=== PATIENT | male | born 1960 | race American Indian/Alaskan Native ===

== ENCOUNTER 2017-05-08 10:52 | Emergency (ER) | payer SELFPAY ==
[2017-05-08 11:15] VITALS: BP 164/93
--- NOTE | 2017-05-08 12:13 | Emergency Department Report ---
Upper Extremity - HPI Chief Complaint: Extremity Injury, Upper Stated Complaint: RIGHT MIDDLE FINGER INJURY Time Seen by Provider: 05/08/17 11:20 Upper Extremity: Right Middle Finger Occurred When: 4 Days Mechanism: Hit with Object, Crush Severity: moderate Symptoms: Yes Deformity, Yes Laceration or Abrasion, No Pain with Movement, No Limited Range of Movement, No Numbness, No Weakness, No Swelling Other History: 57-year-old male past medical history none presents 4 days status post injury to right distal middle finger. 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 Patient states he was treated at [facility]. in [place] and has paperwork for his visit to the emergency department there. Patient experienced a distal right middle fingertip tuft amputation. Patient presents to the ED today requesting referral to orthopedics last hand specialist and for wound check. Denies fever or chills denies pus or purulent drainage from tip of finger and or foul smell. Patient was given prescription for Percocet and is on 10 day course of 500 mg Keflex 3 times a day. Patient was given Ancef and tetanus update at [facility]. Denies worsening pain or injuries to any other body part. States this is a workman's comp related visit. ED Review of Systems ROS: Stated complaint: RIGHT MIDDLE FINGER INJURY Other details as noted in HPI Constitutional: denies: chills, fever Eyes: denies: eye pain, eye discharge, vision change ENT: denies: ear pain, throat pain Respiratory: denies: cough, shortness of breath, wheezing Cardiovascular: denies: chest pain, palpitations Endocrine: no symptoms reported Gastrointestinal: denies: abdominal pain, nausea, diarrhea Genitourinary: denies: urgency, dysuria Musculoskeletal: as per HPI (avulsion/amputation injury to right distal middle finger). denies: back pain, joint swelling, arthralgia Skin: denies: rash, lesions Neurological: denies: headache, weakness, paresthesias Psychiatric: denies: anxiety, depression Hematological/Lymphatic: denies: easy bleeding, easy bruising ED Past Medical Hx - Past Medical History Previous Medical History?: No - Surgical History Past Surgical History?: No - Social History Smoking Status: Never Smoker Substance Use Type: None - Medications Home Medications: Home Medications Medication Instructions Recorded Confirmed Last Taken Type HYDROcodone/APAP 5-325 [[place] 1 each PO Q6HR PRN #8 tablet 05/08/17 Unknown Rx 5/325] Naproxen 500 mg PO BID PRN #30 tablet 05/08/17 Unknown Rx Upper Extremity Exam - Exam General: Vital signs noted. No distress. Alert and acting appropriately. Head and Torso: No HEENT Abnormality, No Neck Tenderness, No Chest/Lungs Abnormality, No Abdominal Tenderness, No Back Tenderness Shoulder Exam: Yes Normal Range of Motion in Shoulder, No Shoulder Tenderness, No Clavicle Tenderness, No Shoulder Deformity, No AC Joint Tenderness Arm Exam: No Arm/Humerus Tenderness, No Arm Deformity Elbow: No Elbow Tenderness, No Normal Range of Motion in Elbow, No Elbow Deformity Forearm: No Forearm Tenderness, No Forearm Deformity, No Pain with Pronation, No Pain with Supination Wrist: Yes Normal ROM in Wrist (wrist flexion and extension intact), No Wrist Tenderness, No Wrist Deformity, No Snuffbox Tenderness (is no snuffbox tenderness on exam), No Pain with Axial Thumb Compression Hand: Yes Digit Tenderness (distal right middle finger tenderness passed distal interphalangeal joint when there is a large visible avulsion), Yes Normal ROM in Digit(s) (range of motion MCPs DIPs PIP is intact on exam right hand), No Hand Tenderness, No Hand Deformity, No Digit(s) Deformity, No Tendon Dysfunction CMS Exam: Yes Broken Skin (large distal right middle finger tip avulsion), Yes Normal Distal Pulses ([place] refilled to right middle finger intact between the MCP and PIP and between PIP and DIP. No clinical signs of ischemia. Distal radial and ulnar pulses intact capillary refill less than one second all of the fingers. Nail bed intact right distal middle finger with normal capillary refill), No Normal Capillary Refill, No Normal Distal Sensation Hand L/R Front: 1 - Missing tissue here with exposed subcutaneous tissue. Nail bed intact. ED Course Vital Signs 05/08/17 11:07 Temperature 99.0 F Pulse Rate 76 Respiratory 18 Rate Blood Pressure 164/93 O2 Sat by Pulse 97 Oximetry ED Medical Decision Making - Medical Decision Making A/P: Right distal middle finger tip avulsion amputation injury, wound check 1-injury occurred 4 days ago no indication for closure at this time and no possibility for primary closure at this time given nature of injury and amoutn of tissue amputation. Tetanus vaccination status up-to-date updated this week. Good range of motion all fingers and normal vascular exam. 2-pt is already on regimen of Keflex 500mg tid for 10 days. I emphasized to the patient the importance of strictly maintaining his antibiotic regimen 3-will provide patient with additional naproxen when necessary for pain and a few additional [place] for pain 4- I referred patient to Dr. Romero [facility] othopedic physician, [facility] and provided him with information for hand specialty clinics in [facility] [email or web address] Advised patient he can follow up with anyone of these specialist and advised him to do so as soon as possible to mitigate any long- term injury to hand. I advised the patient to return to the ED for any foul drainage from tip of finger evidence of finger cellulitis foul smell from finger and/or fever or chills. Patient stated he understood my instructions. 5- Pt states he has ability to obtain copies of his x-rays and images from [facility]. As patient is able to do so no indication for reimaging at this time. 6- Case d/w Dr. Pate before discharge Critical care attestation.: If time is entered above; I have spent that time in minutes in the direct care of this critically ill patient, excluding procedure time. ED Disposition Clinical Impression: Visit for wound check Avulsion of fingertip Qualifiers: Encounter type: initial encounter Qualified Code(s): S61.209A - Unspecified open wound of unspecified finger without damage to nail, initial encounter Disposition: TO HOME OR SELFCARE Is pt being admited?: No Does the pt Need Aspirin: No Condition: Stable Instructions: Acute Wound Care (ED), Finger Amputation (ED), Finger Laceration (ED), Skin Avulsion (ED) Additional Instructions: Return to the emergency room for any signs of infection including increased redness pus drainage and foul odor fevers or chills Prescriptions: HYDROcodone/APAP 5-325 [[place] 5/325] 1 each PO Q6HR PRN #8 tablet PRN Reason: Pain Naproxen 500 mg PO BID PRN #30 tablet PRN Reason: Pain Referrals: [facility] [Provider Group] - 3-5 Days GABRIELA ROMERO MD [Staff Physician] - 3-5 Days Time of Disposition: 12:19
== END 2017-05-08 12:32 | disposition home or self-care (01) ==
LOC: ED 10:52
DX: S61.302A Unspecified open wound of right middle finger with damage to nail, initial encounter (principal); W22.09XA Striking against other stationary object, initial encounter; Y93.89 Activity, other specified; Y92.89 Other specified places as the place of occurrence of the external cause; Y99.8 Other external cause status
CPT/HCPCS: 99282